=== PATIENT | female | born 1970 | race Caucasian/White ===

== ENCOUNTER → 2017-01-18 | Outpatient (CLI) | payer OTHER ==
[~2017-01-18] MED LIST: PHEN95CM PO
== END | disposition home or self-care (01) ==
LOC: CFH 07:41
PROVIDERS: ATTEND Nurse Practitioner Family
DX: K76.0 Fatty (change of) liver, not elsewhere classified (principal); Z90.49 Acquired absence of other specified parts of digestive tract
CPT/HCPCS: 76700

== ENCOUNTER 2017-04-23 02:11 | Emergency (ER) | payer OTHER ==
[~2017-04-23] VITALS: Ht 160 cm; Wt 61.5 kg
[2017-04-23] MEDS ORDERED: OMEP-110 PO (02:19)
[2017-04-23] MEDS ORDERED: SODIUM CHLORIDE 0.9% 1,000 ML IV ONE (05:13)
[2017-04-23] MEDS ORDERED: SODIUM CHLORIDE FLUSH 10ML SYR IVF ONE (05:30)
[2017-04-23] MEDS ORDERED: KETOROLAC 30 MG/1 ML IVPush ONE (05:30)
[2017-04-23] MEDS ORDERED: SODIUM CHLORIDE 0.9% 1,000ML IVBOLUS ONE (05:30)
[2017-04-23] MEDS ORDERED: DIAZEPAM 5 MG/ML, 2ML IVPush ONE (05:30)
[2017-04-23] MEDS ORDERED: ONDANSETRON 2MG/ML, 2ML IVPush ONE (05:30)
[2017-04-23] MEDS ORDERED: ONDANSETRON 2MG/ML, 2ML ONE (05:45)
[2017-04-23] MEDS ORDERED: KETOROLAC 30 MG/1 ML ONE (05:45)
[2017-04-23 06:04] LABS: HEMATOCRIT 45.7 % (34.6-47.8); HEMOGLOBIN 15.4 g/dL (11.7-16.4); WHITE BLOOD COUNT 7.4 x10^3/uL (3.4-10)
[2017-04-23 06:12] LABS: ASPARTATE AMINO TRANSFERASE 21 U/L (15-37); BLOOD UREA NITROGEN 9 mg/dL (7-18)
[2017-04-23 07:47] VITALS: BP 122/74
== END 2017-04-23 07:49 | disposition home or self-care (01) ==
LOC: ED 05:42
DX: G44.219 Episodic tension-type headache, not intractable (principal); K21.9 Gastro-esophageal reflux disease without esophagitis
CPT/HCPCS: 36415; 70450; 80053; 84703; 85025; 93005; 96361; 96374; 96375; 99285; J1885; J2405; J3360; J7030

== ENCOUNTER 2018-09-03 08:27 | Inpatient (IN) | payer OTHER ==
[~2018-09-03] VITALS: Ht 144.8 cm; Wt 62.8 kg
[~2018-09-03 08:27] MED LIST changes: +OMEP-110 PO
--- NOTE | 2018-09-03 08:27 | NUR ---
LATE ENTRY - PT ARRIVES BY EMS, FOUND TO BE ALTERED AND NON RESPONSIVE THIS AM AT HOME BY FAMILY MEMBERS. PT WAS LAST SEEN NORMAL LAST NIGHT AT APPROX 2300. PT ARRIVES LETHARGIC WITH EYES OPEN AND GAZE FIXED TO UPPER RIGHT. RESP NORMAL AND VSS. PT HAS NO VISABLE SIGNS OF TRAUMA. FAMILY AT BEDSIDE DENY ANY RECENT TRAUMA OR MAJOR MEDICAL HX. MD TO BEDSIDE FOR ASSESSMENT. PT TO CT WITH THIS RN, SECURITY TECH, ON TRANSPORT MONITOR.
--- NOTE | 2018-09-03 08:46 | NUR ---
BACK FROM CT AT THIS TIME.
--- NOTE | 2018-09-03 08:50 | NUR ---
TLEPSYCH NEURO CONSULT WITH MD DEAL AT [facility] IN PROGRESS AT THIS TIME. Addendum: 09/03/18 at 0853 by DON TELE NEURO CONSULT WITH EMERSON AND MD DEAL AT [facility] IN PROGRESS AT THIS TIME.
[2018-09-03] MEDS ORDERED: LORazepam 2 MG/ML, 1ML ONE (08:57)
[2018-09-03] MEDS ORDERED: OMNIPAQUE 350 MG/ML, 100ML BOTTLE ONE (08:58)
[2018-09-03] MEDS ORDERED: LORazepam 2 MG/ML, 1ML IVPush ONE (09:00)
[2018-09-03 09:05] LABS: BASOPHILS # (AUTO) 0.03 x10^3/uL (0-0.1); BASOPHILS % (AUTO) 0 % (0-1); EOSINOPHILS % (AUTO) 3 % (1-7); LYMPHOCYTES # (AUTO) 2.35 x10^3/uL (1-3.4); LYMPHOCYTES % (AUTO) 31 % (22-44); MD NO; MEAN CORPUSCULAR HEMOGLOBIN 29.2 pg (27.0-34.8); MEAN CORPUSCULAR HGB CONC 33.3 g/dL (32.4-35.8); MEAN CORPUSCULAR VOLUME 87.9 fL (80-100); MONOCYTES # (AUTO) 0.63 x10^3/uL (0.2-0.8); MONOCYTES % (AUTO) 8 % (2-9); NEUTROPHILS # (AUTO) 4.47 x10^3/uL (1.8-6.8); NEUTROPHILS % (AUTO) 58 % (42-75); PLATELET COUNT 333 x10^3/uL (130-400); RED BLOOD COUNT 5.07 x10^6/uL (3.82-5.3); RED CELL DISTRIBUTION WIDTH 13.1 % (9.6-15.2)
[2018-09-03 09:15] LABS: INTERNATIONAL NORMALIZED RATIO 0.99 (0.93-1.1); PROTHROMBIN TIME 10.4 Seconds (9.6-11.5)
--- NOTE | 2018-09-03 09:24 | NUR ---
PT NOW SHOWING MORE SIGNS OF RESPONSIVENESS. MOVING ALL EXTREMETIES. STILL DOES NOT FOLLOW COMMANDS. EYES OPEN SPONTANEOUSLY. PT REPETATIVE AND INAPPROPRIATE IN SPEECH. RESP EVEN AND UNLABORED. RESTING ON GURNEY. SIDERAILS UP X 2, FALL PRECAUTIONS IN PLACE. FAMILY REMAIN AT BEDSIDE.
--- NOTE | 2018-09-03 09:45 | NUR ---
SBAR REPORT AND PT CARE TRANSFERRED TO KAVIN ACEVEDO, PT MOVED TO ROOM 40.
--- NOTE | 2018-09-03 09:47 | NUR ---
Report received from frankie ACEVEDO. Patient awake/conversing with family Arun x 2 at 3mm Groaning in pain-report right arm weakness/pain. Provider aware Difficult to assess extremity strength as patient not following chief writer's commands-However, seen using both arm to point or touch when interacting with family. Reported to have comented " I want to go see mom" who is . Unable to directly answer SI questions given neurological state Daughter/ at bedside
--- NOTE | 2018-09-03 10:00 | NUR ---
After clarification with provider-patient allowed to drink water. Repeat swallow w/ 3oz completed 1st w/ no difficulty. Repeat assessment completed w/ Distillery Supervisor [phone] Provider to bedside
--- NOTE | 2018-09-03 10:21 | NUR ---
DR. DE LA CRUZ AT BEDSIDE
[2018-09-03] MEDS ORDERED: LABETALOL 20 MG/4 ML IVPush PRN (10:30)
[2018-09-03] MEDS ORDERED: POLYETHYLENE GLYCOL 17 GM PACKET PO PRN (10:30)
[2018-09-03] MEDS ORDERED: ONDANSETRON ODT 4 MG PO PRN (10:30)
[2018-09-03] MEDS ORDERED: morphine SULFATE 10 MG/ML, 1ML IVPush PRN (10:30)
[2018-09-03 10:47] LABS: FREE T4 (FREE THYROXINE) 1.07 ng/dL (0.76-1.46)
[2018-09-03 11:25] LABS: CHOL/HDL RATIO 4.7; LDL/HDL RATIO 2.9 (0.5-3.0)
[2018-09-03 11:43] LABS: HEMOGLOBIN A1C 5.8 % (4.2-6.3)
[2018-09-03] MEDS ORDERED: GADOBUTROL 7.5 MMOL/7.5 ML PFS ONE (12:06)
[2018-09-03 12:09] VITALS: BP 135/86
[2018-09-03 12:12] LABS: AMPHETAMINE SCREEN, URINE Negative (Negative); BARBITURATE SCREEN, URINE Negative (Negative); BENZODIAZEPINE SCREEN, URINE Negative (Negative); CANNABINOID SCREEN, URINE Negative (Negative); COCAINE SCREEN, URINE Negative (Negative); METHADONE SCREEN, URINE Negative (Negative); OPIATE SCREEN, URINE Negative (Negative)
[2018-09-03] MEDS: ONDANSETRON 2MG/ML, 2ML IVPush PRN ×2 (12:21→22:35)
[2018-09-03 12:31] LABS: CULTURE INDICATED? YES; MICROSCOPIC INDICATED
[2018-09-03] MEDS ORDERED: ASPIRIN 300 MG SUPP PR SCH ×2 (14:00)
[2018-09-03] MEDS: D5%-0.45% NACL 1,000 ML IV SCH (16:04)
[2018-09-03 19:20] VITALS: BP 105/69
[2018-09-04 01:58] VITALS: BP 111/71
[2018-09-04] MEDS: D5%-0.45% NACL 1,000 ML IV SCH ×2 (02:00→09:30)
[2018-09-04] MEDS: ACETAMINOPHEN 325 MG TABLET PO PRN ×3 (06:08→20:48)
[2018-09-04 07:08] LABS: BASOPHILS # (AUTO) 0.03 x10^3/uL (0-0.1); BASOPHILS % (AUTO) 0 % (0-1); EOSINOPHILS # (AUTO) 0.09 x10^3/uL (0-0.4); EOSINOPHILS % (AUTO) 1 % (1-7); LYMPHOCYTES # (AUTO) 1.86 x10^3/uL (1-3.4); LYMPHOCYTES % (AUTO) 20 % (22-44); MD NO; MEAN CORPUSCULAR HGB CONC 33.1 g/dL (32.4-35.8); MEAN CORPUSCULAR VOLUME 87.8 fL (80-100); MEAN PLATELET VOLUME 7.3 fL (7.4-10.4); MONOCYTES # (AUTO) 0.86 x10^3/uL (0.2-0.8); MONOCYTES % (AUTO) 9 % (2-9); NEUTROPHILS % (AUTO) 69 % (42-75); PLATELET COUNT 303 x10^3/uL (130-400); RED BLOOD COUNT 4.76 x10^6/uL (3.82-5.3); RED CELL DISTRIBUTION WIDTH 13.4 % (9.6-15.2)
[2018-09-04 07:16] LABS: ALANINE AMINOTRANSFERASE 18 U/L (12-78); ALBUMIN 3.1 g/dL (3.4-5.0); ANION GAP 6 mmol/L (5-15); CHLORIDE 111 mmol/L (98-107); CREATININE 0.61 mg/dL (0.55-1.02)
[2018-09-04 07:26] LABS: ALKALINE PHOSPHATASE 79 U/L (45-117); BILIRUBIN,TOTAL 0.5 mg/dL (0.2-1.0); THYROID STIMULATING HORMONE 0.879 mIU/L (0.358-3.740); TOTAL PROTEIN 6.9 g/dL (6.4-8.2)
[2018-09-04] MEDS: PANTOPRAZOLE 40 MG IV IVPush SCH (07:55)
[2018-09-04] MEDS: SENNA/DOCUSATE TABLET PO SCH (07:55)
[2018-09-04 08:04] VITALS: BP 113/71
[2018-09-04] MEDS: ONDANSETRON 2MG/ML, 2ML IVPush PRN (13:03)
--- NOTE | 2018-09-04 13:31 | NUR ---
MEDICAL POLICY SPECIALIST RECOMMEND: PUREE/ THINS -Straws ok -Check for pocketing -Upright at 90 degrees for all meals -Assist as needed -Float meds Addendum: 09/04/18 at 1335 by LG DENISE Amended: Links added.
[2018-09-04 14:00] VITALS: BP 106/70
[2018-09-04 19:53] VITALS: BP 110/74
[2018-09-04] MEDS: ATORVASTATIN 80 MG TABLET PO SCH (20:39)
[2018-09-05 01:13] VITALS: BP 97/67
[2018-09-05] MEDS: ASPIRIN 81 MG TABLET EC PO SCH (04:50)
[2018-09-05 05:23] LABS: BASOPHILS # (AUTO) 0.02 x10^3/uL (0-0.1); BASOPHILS % (AUTO) 0 % (0-1); EOSINOPHILS # (AUTO) 0.17 x10^3/uL (0-0.4); EOSINOPHILS % (AUTO) 2 % (1-7); LYMPHOCYTES # (AUTO) 2.13 x10^3/uL (1-3.4); LYMPHOCYTES % (AUTO) 28 % (22-44); MD NO; MEAN CORPUSCULAR HGB CONC 33.9 g/dL (32.4-35.8); MEAN CORPUSCULAR VOLUME 88.3 fL (80-100); MEAN PLATELET VOLUME 7.1 fL (7.4-10.4); MONOCYTES # (AUTO) 0.77 x10^3/uL (0.2-0.8); MONOCYTES % (AUTO) 10 % (2-9); NEUTROPHILS # (AUTO) 4.59 x10^3/uL (1.8-6.8); NEUTROPHILS % (AUTO) 60 % (42-75); PLATELET COUNT 279 x10^3/uL (130-400); RED BLOOD COUNT 4.74 x10^6/uL (3.82-5.3); RED CELL DISTRIBUTION WIDTH 13.1 % (9.6-15.2)
[2018-09-05 05:34] LABS: ALBUMIN 3.2 g/dL (3.4-5.0); CALCIUM 8.3 mg/dL (8.5-10.1); CREATININE 0.55 mg/dL (0.55-1.02)
[2018-09-05 05:35] LABS: ANION GAP 6 mmol/L (5-15); CHLORIDE 113 mmol/L (98-107)
[2018-09-05 08:05] VITALS: BP 98/59
[2018-09-05] MEDS: PANTOPRAZOLE 40 MG IV IVPush SCH (09:02)
[2018-09-05] MEDS: SENNA/DOCUSATE TABLET PO SCH (09:02)
[2018-09-05] MEDS: CLOPIDOGREL 75 MG TABLET PO SCH (09:02)
[2018-09-05] MEDS: ACETAMINOPHEN 325 MG TABLET PO PRN ×2 (09:08→20:18)
[2018-09-05] MEDS ORDERED: D5%-0.45% NACL 1,000 ML IV SCH (14:00)
[2018-09-05 14:54] VITALS: BP 99/59
[2018-09-05] MEDS: ATORVASTATIN 80 MG TABLET PO SCH (20:18)
[2018-09-05 20:41] VITALS: BP 121/75
[2018-09-06 02:05] VITALS: BP 105/69
[2018-09-06] MEDS: ASPIRIN 81 MG TABLET EC PO SCH (05:29)
[2018-09-06 06:53] LABS: BASOPHILS # (AUTO) 0.03 x10^3/uL (0-0.1); BASOPHILS % (AUTO) 0 % (0-1); EOSINOPHILS % (AUTO) 3 % (1-7); LYMPHOCYTES # (AUTO) 1.71 x10^3/uL (1-3.4); LYMPHOCYTES % (AUTO) 23 % (22-44); MD NO; MEAN CORPUSCULAR HEMOGLOBIN 29.4 pg (27.0-34.8); MEAN CORPUSCULAR HGB CONC 33.3 g/dL (32.4-35.8); MEAN CORPUSCULAR VOLUME 88.2 fL (80-100); MEAN PLATELET VOLUME 7.1 fL (7.4-10.4); MONOCYTES # (AUTO) 0.67 x10^3/uL (0.2-0.8); MONOCYTES % (AUTO) 9 % (2-9); NEUTROPHILS # (AUTO) 4.71 x10^3/uL (1.8-6.8); NEUTROPHILS % (AUTO) 65 % (42-75); PLATELET COUNT 283 x10^3/uL (130-400); RED BLOOD COUNT 4.61 x10^6/uL (3.82-5.3); RED CELL DISTRIBUTION WIDTH 13.5 % (9.6-15.2)
[2018-09-06 07:02] LABS: CHLORIDE 111 mmol/L (98-107)
[2018-09-06 07:11] LABS: ALANINE AMINOTRANSFERASE 18 U/L (12-78); ALBUMIN 2.9 g/dL (3.4-5.0); ALKALINE PHOSPHATASE 74 U/L (45-117); ANION GAP 6 mmol/L (5-15); BILIRUBIN,TOTAL 0.8 mg/dL (0.2-1.0); CALCIUM 8.1 mg/dL (8.5-10.1); CREATININE 0.49 mg/dL (0.55-1.02); TOTAL PROTEIN 6.7 g/dL (6.4-8.2)
[2018-09-06 08:20] VITALS: BP 128/68
[2018-09-06] MEDS: PANTOPRAZOLE 40 MG IV IVPush SCH (08:24)
[2018-09-06] MEDS: ACETAMINOPHEN 325 MG TABLET PO PRN ×3 (08:24→20:53)
[2018-09-06] MEDS: SENNA/DOCUSATE TABLET PO SCH (08:24)
[2018-09-06] MEDS: CLOPIDOGREL 75 MG TABLET PO SCH (08:24)
[2018-09-06] MEDS ORDERED: PANTOPRAZOLE 20MG TABLET PO ONE (10:00)
[2018-09-06] MEDS ORDERED: POTASSIUM CHLORIDE 20 MEQ TAB.ER.PRT PO ONE ×2 (10:00→11:30)
[2018-09-06 15:11] VITALS: BP 123/62
[2018-09-06 20:28] VITALS: BP 127/65
[2018-09-06] MEDS: ATORVASTATIN 80 MG TABLET PO SCH (20:53)
[2018-09-07 02:38] VITALS: BP 121/62
[2018-09-07] MEDS: ASPIRIN 81 MG TABLET EC PO SCH (05:23)
[2018-09-07 07:40] VITALS: BP 113/78
[2018-09-07] MEDS: CLOPIDOGREL 75 MG TABLET PO SCH (08:55)
[2018-09-07] MEDS: SENNA/DOCUSATE TABLET PO SCH (09:00)
--- NOTE | 2018-09-07 09:59 | NUR ---
RETAIL SALES ASSOCIATE SEASONAL RECOMMENDATIONS: Diet upgrade to ground solids and thin liquids: - alternate liquids and solids - effortful swallow - slow rate - small bites/sips - HOB 90* or up to chair for meals - Straws okay Addendum: 09/07/18 at 1000 by Kiesha DENISE Amended: Links added.
[2018-09-07] MEDS ORDERED: POLY17PO5 PO (11:33)
[2018-09-07] MEDS ORDERED: ASPI81TA45 PO (11:33)
[2018-09-07] MEDS ORDERED: CLOP75TA PO (11:33)
[2018-09-07] MEDS ORDERED: ATOR-2 PO (11:33)
== END 2018-09-07 14:10 | DRG 67 ==
LOC: ED 09:39 → EDIP 09:40 → 4WST 10:39
PROVIDERS: ADMIT Internal Medicine; ATTEND Internal Medicine
DX: I65.23 Occlusion and stenosis of bilateral carotid arteries (principal); I63.9 Cerebral infarction, unspecified; E83.39 Other disorders of phosphorus metabolism; F32.9 Major depressive disorder, single episode, unspecified; F41.1 Generalized anxiety disorder; R06.4 Hyperventilation; K59.00 Constipation, unspecified; K21.9 Gastro-esophageal reflux disease without esophagitis; K76.0 Fatty (change of) liver, not elsewhere classified; Z80.49 Family history of malignant neoplasm of other genital organs; Z86.73 Personal history of transient ischemic attack (TIA), and cerebral infarction without residual deficits; Z90.49 Acquired absence of other specified parts of digestive tract; Z79.899 Other long term (current) drug therapy; Z79.82 Long term (current) use of aspirin; Z79.02 Long term (current) use of antithrombotics/antiplatelets
CPT/HCPCS: 36415; 70450; 70496; 70498; 70553; 74230; 80047; 80048; 80053; 80061; 80307; 81001; 81240; 81241; 81291; 82040; 82962; 83036; 83090; 83516; 83695; 83735; 84100; 84439; 84443; 84484; 85025; 85240; 85300; 85302; 85303; 85305; 85306; 85307; 85610; 85730; 85732; 86038; 86146; 86147; 86160; 86225; 86235; 86255; 86256; 86376; 86431; 87086; 87147; 93005; 93306; 93880; 96374; 99285; A9585; G0378; J2405; Q9967; 92523-GN; C9113; J2060; J2270

== ENCOUNTER → 2018-10-11 | Outpatient (CLI) | payer OTHER ==
[~2018-10-11] MED LIST changes: +ASPI81TA45 PO; +ATOR-2 PO; +CLOP75TA PO; +POLY17PO5 PO
== END | disposition home or self-care (01) ==
LOC: CFH 14:11
PROVIDERS: ATTEND Family Medicine
DX: Z12.31 Encounter for screening mammogram for malignant neoplasm of breast (principal)
CPT/HCPCS: 77067